=== PATIENT | female | born 1950 | race Caucasian/White ===

== ENCOUNTER 2017-01-04 08:07 | Day surgery (SDC) | payer OTHER ==
[2017-01-02 13:42] VITALS: BMI 42.3
[2017-01-04] MEDS ORDERED: MIDAZOLAM HCL 2 MG/2 ML SINGLE DOSE VIAL ONE (11:28)
[2017-01-04] MEDS ORDERED: ceFAZolin SODIUM 1 GM VIAL ONE (11:56)
[2017-01-04] MEDS ORDERED: ceFAZolin SODIUM 1 GM VIAL IVPB ONE (11:57)
[2017-01-04] MEDS ORDERED: GENTAMICIN SO4 80 MG/2 ML VIAL ONE (11:58)
[2017-01-04] MEDS ORDERED: GENTAMICIN SO4 80 MG/2 ML VIAL IVPB ONE (12:02)
[2017-01-04] MEDS ORDERED: PROPOFOL 20 ML ONE ×2 (12:12→13:45)
[2017-01-04] MEDS ORDERED: ePHEDrine SULFATE 50 MG/1 ML AMPULE ONE (12:14)
--- NOTE | 2017-01-04 12:24 | OP ---
Operative Note - Note: Operative Date: 01/04/17 Pre-Operative Diagnosis: rt upper pole kidney mass Operation: cysto/retrograde pyelogram/rt ureteroscopy/stent placement Findings: rt upper pole filling defect, rt prox ureteral stricture Post-Operative Diagnosis: Same as Pre-op Surgeon: Jonas Alegre Anesthesia: General Estimated Blood Loss (mls): 5 Drains & Tubes with Location: 7fr, 24cm stent Operative Report Dictated: Yes
[2017-01-04] MEDS ORDERED: oxyCODONE HCL 5 MG TABLET PO PRN (12:25)
[2017-01-04] MEDS ORDERED: DEXTROSE 5%-0.45% SALINE 1,000 ML IV SCH (12:30)
[2017-01-04] MEDS ORDERED: ONDANSETRON 4 MG/2 ML VIAL ONE ×2 (12:41→15:46)
[2017-01-04] MEDS: ONDANSETRON 4 MG/2 ML VIAL IVPUSH PRN ×2 (12:42→16:01)
[2017-01-04] MEDS ORDERED: LACTATED RINGERS SOLUTION 1,000 ML IV SCH (12:45)
--- NOTE | 2017-01-04 13:17 | OP ---
DATE OF OPERATION: 01/04/2017 PREOPERATIVE DIAGNOSIS: Right upper pole renal mass. POSTOPERATIVE DIAGNOSIS: Right upper pole renal mass, plus right proximal ureteral stricture. PROCEDURE: Cystoscopy, retrograde pyelogram, ureteroscopy, and stent placement. SURGEON: Jonas Alegre MD INDICATIONS: Patient is a 66-year-old female who for workup for hematuria was noted to have a right upper pole renal mass in the collecting system. She was taken to the OR for a diagnostic ureteroscopy. DESCRIPTION OF PROCEDURE: Patient was taken to the OR, placed supine on the operating table. After cardiac monitoring administered and general anesthesia established, she was prepped and draped in dorsal position. The cystoscope was introduced without difficulty and then into the bladder. No tumors or stones were noted in the bladder. The right ureteral orifice was intubated. Contrast was injected for retrograde pyelogram through a ureteral catheter. There was a filling defect in the upper pole. A guidewire was advanced into upper pole, and then, a dual lumen catheter was advanced and a second guidewire was advanced. Over this second guidewire, a flexible ureteroscope was advanced. However, it would only go up to the level of proximal ureter. It would not go up any further. Visibly, the proximal ureter was narrowed, and so this appeared to be stricture. At this point, it was determined the rest of the distal and mid ureter appeared normal. At this point, ureteroscope was then removed, and it was determined to place a stent, and then, to come back in with the ureter dilated. So, a 7-Romansh 24-cm double-pigtail stent was then advanced in the monorail fashion and guidewire removed. Fluoroscopy confirmed this stent to be in good position. Patient was awoken from anesthesia and transferred to the recovery room in stable condition. There were no complications. ESTIMATED BLOOD LOSS: Minimal. Carly [id number]
[2017-01-04] MEDS ORDERED: METOCLOPRAMIDE HCL INJECTION 10 MG/2 ML VIAL ONE (13:22)
[2017-01-04 14:38] VITALS: TEMP 97.7
[2017-01-04] MEDS ORDERED: METOCLOPRAMIDE HCL INJECTION 10 MG/2 ML VIAL IVPB ONE (16:34)
[2017-01-04 17:32] VITALS: BP 164/72; PULSE 74
== END 2017-01-04 17:32 | disposition home or self-care (01) ==
LOC: JASU-SURG 08:07
PROVIDERS: ATTEND Urology
PROC: 0T768DZ Dilation of Right Ureter with Intraluminal Device, Via Natural or Artificial Opening Endoscopic (ICD-10-PCS; principal; 2017-01-04 10:00)
PROC: BT1DYZZ Fluoroscopy of Right Kidney, Ureter and Bladder using Other Contrast (ICD-10-PCS; 2017-01-04 10:00)
DX: N28.89 Other specified disorders of kidney and ureter (principal); N35.9 Urethral stricture, unspecified; E11.9 Type 2 diabetes mellitus without complications; E78.5 Hyperlipidemia, unspecified; Z79.84 Long term (current) use of oral hypoglycemic drugs
CPT/HCPCS: 76000-TC; 94760

== ENCOUNTER 2017-01-18 09:22 | Day surgery (SDC) | payer OTHER ==
[2017-01-17 12:57] VITALS: BMI 42.3
[2017-01-18] MEDS ORDERED: MIDAZOLAM HCL 2 MG/2 ML SINGLE DOSE VIAL ONE (11:59)
[2017-01-18] MEDS ORDERED: PROPOFOL 20 ML ONE (12:03)
[2017-01-18] MEDS ORDERED: SUCCINYLCHOLINE CHLORIDE 200 MG/10 ML VIAL ONE (12:04)
[2017-01-18] MEDS ORDERED: ceFAZolin SODIUM 1 GM VIAL IVPB ONE (12:07)
[2017-01-18] MEDS ORDERED: GENTAMICIN SO4 80 MG/2 ML VIAL IVPB ONE (12:13)
[2017-01-18] MEDS ORDERED: GENTAMICIN SO4 80 MG/2 ML VIAL ONE (12:13)
[2017-01-18] MEDS ORDERED: ceFAZolin SODIUM 1 GM VIAL ONE (12:17)
[2017-01-18] MEDS ORDERED: oxyCODONE HCL 5 MG TABLET PO PRN (12:56)
[2017-01-18] MEDS ORDERED: DEXTROSE 5%-0.45% SALINE 1,000 ML IV SCH (13:00)
[2017-01-18 13:03] VITALS: TEMP 97.8
[2017-01-18] MEDS ORDERED: PROMETHAZINE HCL 25 MG/1 ML VIAL IVPUSH PRN (13:18)
[2017-01-18] MEDS ORDERED: ONDANSETRON 4 MG/2 ML VIAL IVPUSH PRN (13:18)
[2017-01-18] MEDS ORDERED: LACTATED RINGERS SOLUTION 1,000 ML IV SCH (13:30)
--- NOTE | 2017-01-18 14:32 | OP ---
DATE OF OPERATION: 01/18/2017 PREOPERATIVE DIAGNOSIS: Right upper pole kidney mass. POSTOPERATIVE DIAGNOSIS: Right upper pole kidney mass. PROCEDURE: Cystoscopy, ureteral stent removal, ureteroscopy, biopsy of large right upper pole renal collecting system mass, and stent replacement. SURGEON: Jack Trammell MD INDICATION: Patient is a 66-year-old female noted to have a renal mass in the collecting system on CT scan. She was taken to the OR for diagnostic ureteroscopy. A stent had been placed a couple weeks prior. DESCRIPTION OF PROCEDURE: Patient taken to the OR, placed supine on the operating table. After cardiac monitoring had been placed and general anesthesia was established, she was prepped and draped in the dorsal lithotomy position. She was given 2 g of Ancef and 1 mL of gentamicin. The rigid cystoscope was inserted into the urethra without difficulty. The stent was seen emanating from the right ureteral orifice. It was grasped with a grasper and a guidewire was advanced through the stent into the renal pelvis. Over the guidewire, a dual-lumen catheter was advanced, and a second guidewire was used for a safety wire. Over one of the wires, a flexible ureteroscope was advanced into the kidney. The upper pole of the kidney was inspected. There was a large papillary tumor noted. A biopsy was taken with the Piranha biopsy forceps and sent to Pathology for analysis. The ureteroscope was then removed and a 7-Malay, 24-cm double pigtail stent was then advanced in a monorail fashion. Fluoroscopy showed the stent to be in good position. The patient awoke from anesthesia and was transferred to the recovery room in stable condition. There were no complications. Estimated blood loss was minimal. JACK TRAMMELL M.D. [id number]
[2017-01-18 17:13] VITALS: BP 144/76; PULSE 68
--- NOTE | 2017-01-19 13:29 | PATH ---
Surgical Pathology Report Patient Name: TROY HARDING [facility]. Rec. #: [id number] /Age/Gender: 1950 (Age: 66) / F Account: [id number] Location: [facility] SURGICAL Taken: 01/18/2017 Received: 01/18/2017 Reported: 01/19/2017 Physicians: Jonas Alegre M.D. Specimen(s) Received A: RIGHT KIDNEY TUMOR BIOPSY B: OLD STENT Clinical History Disorder of kidney and ureter Right upper lobe kidney mass Final Diagnosis A. RIGHT KIDNEY TUMOR, BIOPSY: HIGH GRADE PAPILLARY UROTHELIAL CARCINOMA. LAMINA PROPRIA INVASION: NOT IDENTIFIED IN THE EXAMINED MATERIAL. NO MUSCULARIS PRESENT. Comment: The case was discussed with Dr. Alegre on 01/19/17. B. OLD STENT, REMOVAL: STENT (GROSS EXAM). Electronically Signed Jones Haney M.D. Gross Description A. Received in formalin, labeled "tumor from right kidney" are 2 mercado, irregular portions of soft tissue averaging 0.3 cm in greatest dimension. The specimens are submitted in toto in one cassette. B. Received fresh labeled "old stent" is a 36 cm in length blue-green, coiled portion of tubing, consistent with a ureteral stent. No soft tissue is present. No sections are submitted, gross only. /01/18/2017 saudi01/18/2017
== END 2017-01-18 15:30 | disposition home or self-care (01) ==
LOC: JASU-SURG 09:22
PROVIDERS: ATTEND Urology
PROC: 0TP98DZ Removal of Intraluminal Device from Ureter, Via Natural or Artificial Opening Endoscopic (ICD-10-PCS; 2017-01-18)
PROC: 0TB08ZX Excision of Right Kidney, Via Natural or Artificial Opening Endoscopic, Diagnostic (ICD-10-PCS; principal; 2017-01-18 11:00)
PROC: 0T768DZ Dilation of Right Ureter with Intraluminal Device, Via Natural or Artificial Opening Endoscopic (ICD-10-PCS; 2017-01-18 11:00)
DX: C64.1 Malignant neoplasm of right kidney, except renal pelvis (principal)
CPT/HCPCS: 76000-TC; 88300-TC; 88305-TC; 94760

== ENCOUNTER 2021-11-17 04:19 | Day surgery (SDC) | payer OTHER ==
[2021-11-15 13:24] VITALS: BMI 42.3
[2021-11-17] MEDS ORDERED: KETAMINE HCL 200 MG/20 ML VIAL ONE (07:25)
[2021-11-17] MEDS ORDERED: PROPOFOL 20 ML ONE ×2 (07:25)
[2021-11-17] MEDS ORDERED: ROCURONIUM BROMIDE 50 MG/5 ML SYRINGE ONE (07:52)
[2021-11-17] MEDS ORDERED: ceFAZolin SODIUM 1 GM VIAL IVPB ONE (08:05)
[2021-11-17] MEDS ORDERED: oxyCODONE HCL 5 MG TABLET PO PRN (08:39)
[2021-11-17] MEDS ORDERED: ELECTROLYTE-148 SOLN 1,000 ML IV SCH (08:45)
[2021-11-17] MEDS ORDERED: ONDANSETRON 4 MG/2 ML VIAL IVPUSH PRN (08:56)
[2021-11-17] MEDS ORDERED: LACTATED RINGERS SOLUTION 1,000 ML IV SCH (09:00)
[2021-11-17 11:08] VITALS: TEMP 97.2
[2021-11-17 12:12] VITALS: BP 144/48; PULSE 78
== END 2021-11-17 12:45 | disposition home or self-care (01) ==
LOC: JASU-SURG 04:19
PROVIDERS: ATTEND Urology
PROC: 0T5B8ZZ Destruction of Bladder, Via Natural or Artificial Opening Endoscopic (ICD-10-PCS; principal; 2021-11-17 07:30)
DX: C67.9 Malignant neoplasm of bladder, unspecified (principal); I10 Essential (primary) hypertension; E11.9 Type 2 diabetes mellitus without complications
CPT/HCPCS: 82962; 88307-TC; 94760

== ENCOUNTER 2023-11-10 11:48 | Emergency (ER) | payer OTHER ==
[2023-11-10 11:53] VITALS: TEMP 97.8; BMI 41.5
[2023-11-10] MEDS ORDERED: CYCLOBENZAPRINE HCL 5 MG TABLET ONE (13:48)
[2023-11-10] MEDS ORDERED: MAG HYDROX/AL HYDROX/SIMETH 30 ML UNIT-DOSE CUP ONE (13:49)
[2023-11-10] MEDS ORDERED: ACETAMINOPHEN INJECTION 100 ML IVPB ONE (13:49)
[2023-11-10] MEDS ORDERED: LIDOCAINE 4% PATCH TP ONE (13:49)
[2023-11-10] MEDS ORDERED: FAMOTIDINE 20 MG/50 ML IVPB 20 MG/50 ML MG IVPB ONE (13:50)
[2023-11-10 13:56] LABS: BASO % 0.7 % (0-2.0); EOS % 0.7 % (0-4.5); HEMATOCRIT 36.1 % (32.4-45.2); HEMOGLOBIN 11.9 GM/dL (10.7-15.3); LYMPH % 21.2 % (8-40); MCH 27.5 pg (25.7-33.7); MCHC 33.1 g/dl (32.0-36.0); MEAN CELL VOLUME 83.1 fl (80-96); MEAN PLT VOLUME 9.3 fl (7.5-11.1); MONO % 5.2 % (3.8-10.2); NEUT % 72.2 % (42.8-82.8); PLATELET COUNT 235 10^3/uL (134-434); RBC 4.34 M/mm3 (3.60-5.2); RDW 13.9 % (11.6-15.6); WHITE BLOOD COUNT 7.7 K/mm3 (4.0-10.0)
[2023-11-10 14:02] LABS: INR 0.97 (0.83-1.09); PROTHROMBIN TIME (PATIENT) 11.2 SEC (9.7-13.0)
[2023-11-10 14:05] LABS: ACTIVATED PTT 28.9 SECONDS (25.2-36.5)
[2023-11-10] MEDS: FAMOTIDINE 20 MG/50 ML IVPB 20 MG/50 ML MG IVPB ONE (14:05)
[2023-11-10] MEDS: LIDOCAINE 4% PATCH TP ONE (14:05)
[2023-11-10] MEDS: MAG HYDROX/AL HYDROX/SIMETH 30 ML UNIT-DOSE CUP PO ONE (14:05)
[2023-11-10] MEDS: SODIUM CHLORIDE 1,000 ML IV STA (14:05)
[2023-11-10] MEDS: CYCLOBENZAPRINE HCL 10 MG TABLET (FP) PO ONE (14:06)
[2023-11-10] MEDS: ACETAMINOPHEN 1000 MG/100 ML BAG IVPB ONE (14:06)
[2023-11-10] MEDS: KETOROLAC TROMETHAMINE 15 MG/ML VIAL IVPUSH ONE (14:07)
[2023-11-10 14:12] LABS: POTASSIUM 4.2 mmol/L (3.5-5.1)
[2023-11-10 14:14] LABS: ALBUMIN 3.6 g/dl (3.4-5.0); BLOOD UREA NITROGEN 29.4 mg/dL (7-18); MAGNESIUM 2.1 mg/dL (1.8-2.4)
[2023-11-10 14:17] LABS: PHOSPHOROUS 3.3 mg/dL (2.5-4.9)
[2023-11-10 14:19] LABS: BILIRUBIN,TOTAL 0.3 mg/dL (0.2-1); TOT PROT 7.1 g/dl (6.4-8.2)
[2023-11-10 15:41] VITALS: BP 182/52; PULSE 74; RESP 20
[2023-11-10 16:13] LABS: EPI CELLS 15 /uL (0-25.1); HYALINE CASTS 2 /uL (0-3.1); PH,URINE 6.5 (5.0-8.0); URINE APPEARANCE CLEAR; URINE BACTERIA 110 /uL (0-1359); URINE BILIRUBIN NEGATIVE (NEGATIVE); URINE COLOR YELLOW; URINE GLUCOSE (UA) NEGATIVE (NEGATIVE); URINE KETONE NEGATIVE (NEGATIVE); URINE LEUK ESTERASE 3+ (NEGATIVE); URINE NITRITE NEGATIVE (NEGATIVE); URINE PROTEIN NEGATIVE (NEGATIVE); URINE RBC 29 /uL (0-23.9); URINE UROBILINOGEN 0.2 mg/dL (0.2-1.0); URINE WBC 321 /uL (0-25.8)
[2023-11-10] MEDS ORDERED: LIDOCAINE PATCH REMOVAL MC ONE (22:00)
== END 2023-11-10 17:30 | disposition home or self-care (01) ==
LOC: JER 11:48
PROC: 3E033GC Introduction of Other Therapeutic Substance into Peripheral Vein, Percutaneous Approach (ICD-10-PCS; principal; 2023-11-10)
PROC: 3E030GC Introduction of Other Therapeutic Substance into Peripheral Vein, Open Approach (ICD-10-PCS; 2023-11-10)
DX: K64.4 Residual hemorrhoidal skin tags (principal); M54.50 Low back pain, unspecified; R10.84 Generalized abdominal pain
CPT/HCPCS: 36415; 71045-TC-FY; 72131-TC; 74177-TC; 80053; 81003; 82272; 83690; 83735; 84100; 84484; 85025; 85610; 85730; 87086; 93970-TC; 99285-25; J0131; Q9967

== ENCOUNTER → 2024-04-15 | Day surgery (SDC) | payer OTHER | END | disposition home or self-care (01) | LOC: JRADIR 11:40 | PROVIDERS: ATTEND Internal Medicine | PROC: 07BH3ZX Excision of Right Inguinal Lymphatic, Percutaneous Approach, Diagnostic (ICD-10-PCS; principal; 2024-04-15) | DX: R59.0 Localized enlarged lymph nodes (principal) | CPT/HCPCS: 38505; 76942-TC; 88305-TC; 88342-TC ==